=== PATIENT | male | born 1955 | race Caucasian/White ===

== ENCOUNTER 2017-05-01 15:36 | Emergency (ER) | payer OTHER ==
[~2017-05-01] VITALS: Ht 182.9 cm; Wt 76.0 kg
[2017-05-01 15:43] VITALS: Ht 182.9 cm; Wt 76.0 kg
--- NOTE | 2017-05-01 17:18 | RADRPT ---
PROCEDURE: US Lower extremity Venous. CLINICAL INDICATION: Left leg pain TECHNIQUE: Multiple sonographic images of the left lower extremity deep venous system was obtained utilizing grayscale, color-flow, compressive sonography and doppler imaging with augmentation. The images were reviewed on a PACS workstation. COMPARISON: None. FINDINGS: There is normal compressibility and flow within the left common femoral, deep femoral, superficial f emoral and popliteal veins. The deep veins the calf were incompletely visualized. IMPRESSION: No sonographic evidence for deep venous thrombosis in the left lower extremity. RPTAT: GG .Gladys Vilchis MD, MD Date Time Electronically viewed and signed by .Gladys Vilchis MD, on 05/01/2017 17:18 .G/
[2017-05-01] MEDS ORDERED: CYCL-319 PO (17:26)
[2017-05-01] MEDS ORDERED: IBUP-1542 PO (17:26)
[2017-05-01] MEDS ORDERED: HYDR-906 PO (17:26)
--- NOTE | 2017-05-01 17:29 | ERD ---
ER Documentation Chief Complaint Chief Complaint left leg pain since yesterday. no trauma HPI 61-year-old male presents with left lower extremity pain behind his calf that began yesterday after he was working in the garden. No trauma. Patient is ambulatory. Has not taken any medications for pain. No chest pain or shortness of breath. No recent travel. ROS All systems reviewed and are negative except as per history of present illness. Medications Home Meds Active Scripts Hydrocodone/Acetaminophen ([place] 5-325 Tablet) 1 Each Tablet, 1 TAB PO Q6H Y for PAIN, #20 TAB Prov:JOSHUA ROGERS PA-C 05/01/17 Ibuprofen* (Motrin*) 600 Mg Tab, 600 MG PO Q6, #30 TAB Prov:JOSHUA ROGERS PA-C 05/01/17 Cyclobenzaprine Hcl* (Cyclobenzaprine Hcl*) 10 Mg Tablet, 10 MG PO QHS, #20 TAB Prov:JOSHUA ROGERS PA-C 05/01/17 PMhx/Soc Medical and Surgical Hx: pt denies Medical Hx, pt denies Surgical Hx History of Surgery: No Anesthesia Reaction: No Hx Neurological Disorder: No Hx Respiratory Disorders: No Hx Cardiac Disorders: No Hx Psychiatric Problems: No Hx Miscellaneous Medical Probl: No Hx Alcohol Use: No Hx Substance Use: No Hx Tobacco Use: No Smoking Status: Never smoker FmHx Family History: No diabetes Physical Exam Vitals Vital Signs Date Time Temp Pulse Resp B/P Pulse Ox O2 Delivery O2 Flow Rate FiO2 05/01/17 15:43 97.9 70 16 115/71 97 Physical Exam Const: [] Head: Atraumatic Eyes: Normal Conjunctiva ENT: Normal External Ears, Nose and Mouth. Neck: Full range of motion..~ No meningismus. Resp: Clear to auscultation bilaterally Cardio: Regular rate and rhythm, no murmurs Abd: Soft, non tender, non distended. Normal bowel sounds Skin: No petechiae or rashes Back: No midline or flank tenderness Ext: Mild left lower extremity edema and induration behind the left calf, no erythema, nontender Procedures/MDM Patient has left lower extremity pain and mild swelling behind the calf. Patients is alert, oriented, well appearing, and in no distress with normal vital signs. There is no fever, tachycardia, or tachypnea. Venous duplex ultrasound negative for DVT. Patient discharged with ibuprofen, Flexeril, and [place]. Patient counseled regarding my diagnostic impression and care plan. Prior to discharge all questions answered. Pt agrees with treatment plan and understands strict return precautions. Pt is instructed to follow up with primary care provider within 24-48 hours. Precautionary instructions provided including instructions to return to the ER if not improving or for any worsening or changing symptoms or concerns. Departure Diagnosis: Primary Impression: Myalgia Condition: Stable Patient Instructions: Myalgias Additional Instructions: Call your primary care doctor TOMORROW for an appointment during the next 1-2 days.See the doctor sooner or return here if your condition worsens before your appointment time. JOSHUA ROGERS PA-C May 01, 2017 17:29
== END 2017-05-01 17:32 | disposition home or self-care (01) ==
LOC: FTE 15:36
DX: M79.1 Myalgia (principal)
CPT/HCPCS: 93971; Z7502; 99284

== ENCOUNTER 2017-10-29 10:06 | Emergency (ER) | END 2017-10-29 12:42 | disposition home or self-care (01) ==

== ENCOUNTER 2018-06-14 07:08 | Day surgery (SDC) | END 2018-06-14 11:29 | disposition home or self-care (01) ==